=== PATIENT | female | born 1990 | race African-American/Black ===

== ENCOUNTER 2024-08-14 01:51 | Emergency (ER) | payer OTHER, MEDICAID, SELFPAY ==
[2024-08-14 01:54] VITALS: BP 127/59; PULSE 79; RESP 17; TEMP 36.4; O2SAT 99
[2024-08-14 07:10] VITALS: BP 111/66; PULSE 60; RESP 16; O2SAT 100
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
[2024-08-14 08:17] VITALS: BP 110/75; PULSE 75; RESP 17; TEMP 36.8; O2SAT 100
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
== END 2024-08-14 08:20 | disposition home or self-care (01) ==
LOC: ANHED 08:10
PROVIDERS: Emergency Provider Emergency Medicine
DX: S13.4XXA Sprain of ligaments of cervical spine, initial encounter (principal); S09.90XA Unspecified injury of head, initial encounter; V40.0XXA Car driver injured in collision with pedestrian or animal in nontraffic accident, initial encounter
CPT/HCPCS: 99283